=== PATIENT | female | born 1980 | race African-American/Black ===

== ENCOUNTER 2019-01-26 17:14 | Emergency (ER) | payer OTHER ==
[~2019-01-26] VITALS: Ht 152.4 cm; Wt 99.8 kg
--- NOTE | 2019-01-26 18:03 | NUR ---
pt able to grab and hold urine specimen cup. pt drove self here. pt ambulates even steady gait.
--- NOTE | 2019-01-26 18:08 | Diagnostic Imaging Report ---
EXAMINATION: CXR 2 VIEW - HOPD INDICATION: Chest pain COMPARISON: None FINDINGS: TUBES and LINES: None. LUNGS: Lungs are well inflated. Lungs are clear. There is no evidence of pneumonia or pulmonary edema. PLEURA: No pleural effusion or pneumothorax. HEART AND MEDIASTINUM: The cardiomediastinal silhouette is unremarkable. BONES AND SOFT TISSUES: No acute osseous lesion. Soft tissues are unremarkable. UPPER ABDOMEN: No free air under the diaphragm. IMPRESSION: No acute thoracic abnormality. Signed by: Dr. Baudilio Jasso M.D. on 01/26/2019 6:05 PM
== END 2019-01-26 19:07 | disposition home or self-care (01) ==
LOC: FSED 17:14
DX: M54.2 Cervicalgia (principal); M54.12 Radiculopathy, cervical region; B34.9 Viral infection, unspecified
CPT/HCPCS: 71046; 80053; 81003; 82553; 84484; 85025; 85379; 99284